=== PATIENT | female | born 1990 | race Caucasian/White ===

== ENCOUNTER 2020-07-02 09:56 | Emergency (ER) | payer OTHER ==
[~2020-07-02] VITALS: Ht 167.6 cm; Wt 54.5 kg
[2020-07-02 09:58] VITALS: BP 161/85
[2020-07-02] MEDS ORDERED: LIDOCAINE/EPI/TETRACAINE TOPICAL GEL 3 ML. TP ONE (12:00)
[2020-07-02] MEDS ORDERED: LIDOCAINE 1%/EPI 1:100,000 20 ML VIAL. ONE (13:12)
[2020-07-02] MEDS ORDERED: LIDOCAINE 1%/EPI 1:100,000 20 ML VIAL. IJ ONE (13:15)
[2020-07-02] MEDS ORDERED: CEPH500T PO (13:37)
--- NOTE | 2020-07-02 13:37 | PHYS DOC ---
Past History Past Medical History: No Pertinent History Past Surgical History: No Surgical History Alcohol Use: None General Adult EDM: Chief Complaint: ABSCESS HPI: HPI: 29-year-old female with a few days of worsening pain, redness, swelling over her right lower buttock. Has had no drainage. Denies any known injury or wound, denies any history of abscess. No systemic complaints Review of Systems: Review of Systems: Constitutional: Denies fever or chills Eyes: Denies change in visual acuity HENT: Denies nasal congestion or sore throat Respiratory: Denies cough or shortness of breath Cardiovascular: Denies chest pain or edema GI: Denies abdominal pain, nausea, vomiting, bloody stools or diarrhea : Denies dysuria Musculoskeletal: Denies back pain or joint pain Integument: Denies rash, has abscess Neurologic: Denies headache, focal weakness or sensory changes Endocrine: Denies polyuria or polydipsia Lymphatic: Denies swollen glands Psychiatric: Denies depression or anxiety Current Medications: Current Meds: Current Medications Medications (Trade) Dose Ordered Sig/Myrna Start Time Stop Time Status Last Admin Dose Admin Lidocaine/ Epinephrine (Let ([id number]) Gel) 3 ml 1X ONCE 07/02/20 12:00 07/02/20 12:01 DC 07/02/20 11:56 3 ML Lidocaine/ Epinephrine (Xylocaine 1%-Epi 1:100,000) 20 ml STK-MED ONCE 07/02/20 13:12 07/02/20 13:12 DC Allergies: Allergies: Allergies Coded Allergies Type Severity Reaction Last Updated Verified No Known Drug Allergies 07/02/20 No Physical Exam: PE: Constitutional: Well developed, well nourished, no acute distress, non-toxic appearance. [] HENT: Normocephalic, atraumatic, bilateral external ears normal, oropharynx moist, no oral exudates, nose normal. [] Eyes: PERRLA, EOMI, conjunctiva normal, no discharge. [] Neck: Normal range of motion, no tenderness, supple, no stridor. [] Cardiovascular:Heart rate regular rhythm, no murmur [] Lungs & Thorax: Bilateral breath sounds clear to auscultation [] Abdomen: Bowel sounds normal, soft, no tenderness, no masses, no pulsatile masses. [] Skin: Warm, dry, no erythema, no rash. [] Erythema and induration of right lower buttock, 2 to 3 cm firm central area Back: No tenderness, no CVA tenderness. [] Extremities: No tenderness, no cyanosis, no clubbing, ROM intact, no edema. [] Neurologic: Alert and oriented X 3, normal motor function, normal sensory function, no focal deficits noted. [] Psychologic: Affect normal, judgement normal, mood normal. [] Current Patient Data: Vital Signs: Vital Signs Date Time Temp Pulse Resp B/P (MAP) Pulse Ox O2 Delivery O2 Flow Rate FiO2 07/02/20 09:58 98.3 97 16 161/85 (110) 99 Room Air EKG: EKG: [] Radiology/Procedures: Radiology/Procedures: Incision and drainage done of abscess on right buttock. 2 mL 1% lidocaine with epinephrine used to the area, skin to open skin and cruciate incision, serous caseous drainage removed, no packing placed, bandage placed. [] Heart Score: Risk Factors: Risk Factors: DM, Current or recent (<one month) smoker, HTN, HLP, family history of CAD, obesity. Risk Scores: Score 0 - 3: 2.5% MACE over next 6 weeks - Discharge Home Score 4 - 6: 20.3% MACE over next 6 weeks - Admit for Clinical Observation Score 7 - 10: 72.7% MACE over next 6 weeks - Early Invasive Strategies Course & Med Decision Making: Course & Med Decision Making Wound appears to be a infected sebaceous cyst, advised to follow-up with primary care for elective excision after infection resolves. [] Dragon Disclaimer: Gabi Disclaimer: This electronic medical record was generated, in whole or in part, using a voice recognition dictation system. Departure Departure: Impression: Primary Impression: Infected sebaceous cyst Condition: STABLE Referrals: PCP,UNKNOWN (PCP) Patient Instructions: Incision and Drainage, Care After Scripts Cephalexin (CEPHALEXIN) 500 Mg Tablet 1 TAB PO TID for infection for 7 Days, #21 TAB Prov: NUHA VILLATORO MD 07/02/20 NUHA VILLATORO MD Jul 02, 2020 13:37
== END 2020-07-02 13:45 | disposition home or self-care (01) ==
LOC: ER 09:56
DX: L72.3 Sebaceous cyst (principal)
CPT/HCPCS: 10060; 99283